=== PATIENT | male | born 1955 | race Caucasian/White ===

== ENCOUNTER → 2020-04-07 | Outpatient (CLI) | payer BC ==
--- NOTE | 2020-04-07 11:41 | CARD ---
MR#: [id number] Date of Study: 04/07/2020 Ordering Physician: GARRETT MO, Referring Physician: GARRETT MO, Tech: Debbie Mejia KELLY APPROVED REPORT EXAM: Two-dimensional and M-mode echocardiogram with Doppler and color Doppler. Other Information Quality : Good Rhythm : Bradycardia INDICATION Dyspnea RISK FACTORS Smoking 2D DIMENSIONS RVDd2.6 (2.9-3.5cm)Left Atrium(2D)2.9 (1.6-4.0cm) IVSd0.6 (0.7-1.1cm)Aortic Root(2D)3.0 (2.0-3.7cm) LVDd4.7 (3.9-5.9cm)LVOT Diameter2.0 (1.8-2.4cm) PWd0.7 (0.7-1.1cm)LVDs3.2 (2.5-4.0cm) FS (%) 32.6 %SV61.9 ml LVEF(%)60.0 (>50%) Aortic Valve AoV Peak Richard.128.7cm/sAoV VTI27.0cm AO Peak GR.6.6mmHgLVOT Peak Richard.126.3cm/s AO Mean GR.3mmHgAVA (VMAX)3.14cm2 KODI (VTI)3.10cm2 Mitral Valve MV E Qyckctim07.7cm/sMV DECEL IPYR696sm MV A Tilmtpqn34.9cm/sE/A Ratio1.2 Tricuspid Valve TR P. Fjxcgroi151yu/sRAP EZOCMOFR2noQq TR Peak Gr.27iaOlZTWA78vpLj Pulmonary Vein S1 Lqxuzcxp23.9cm/sD2 Hakficaq41.7cm/s LEFT VENTRICLE The left ventricle is normal size. There is normal left ventricular wall thickness. The left ventricu lar systolic function is normal and the ejection fraction is within normal range. The Ejection Fracti on is 55-60%. There is normal LV segmental wall motion. The left ventricular diastolic function and f illing is normal for age. RIGHT VENTRICLE The right ventricle is normal size. The right ventricular systolic function is normal. ATRIA The left atrium size is normal. The right atrium size is normal. The interatrial septum is intact wit h no evidence for an atrial septal defect or patent foramen ovale as noted on 2-D or Doppler imaging. AORTIC VALVE The aortic valve is calcified but opens well. Doppler and Color Flow revealed no significant aortic r egurgitation. There is no significant aortic valvular stenosis. MITRAL VALVE The mitral valve is calcified but opens well. There is no evidence of mitral valve prolapse. There is no mitral valve stenosis. Doppler and Color-flow revealed mild mitral regurgitation. TRICUSPID VALVE The tricuspid valve is normal in structure and function. Doppler and Color Flow revealed trace tricus pid regurgitation. The PA pressure was estimated at 32 mmHg. There is no tricuspid valve stenosis. PULMONIC VALVE The pulmonic valve is not well visualized. Doppler and Color Flow revealed no pulmonic valvular regur gitation. There is no pulmonic valvular stenosis. GREAT VESSELS The aortic root is normal in size. The ascending aorta is not well seen. The IVC is normal in size an d collapses >50% with inspiration. PERICARDIAL EFFUSION There is no evidence of significant pericardial effusion. Critical Notification Critical Value: No <Conclusion> The left ventricular systolic function is normal and the ejection fraction is within normal range. Th e Ejection Fraction is 55-60%. There is normal LV segmental wall motion. Signed by : Ricardo Ruiz, Electronically Approved : 04/07/2020 11:41:45
--- NOTE | 2020-04-07 17:33 | RAD ---
MR#: [id number] Date of Study: 04/07/2020 Ordering Physician: GARRETT MO, Referring Physician: ADRIANE JERRY Tech: RT Jeremias (R) (N) APPROVED REPORT Test Type: Exercise Stress Nurse/Tech: Piper Bearden R.N. Test Indications: chest pain Cardiac History: smoker Medications: see ehr Medical History: see ehr Resting ECG: SR with PACs Resting Heart Rate: 57 bpm Resting Blood Pressure: 140/74mmHg Pretest Chest Pain: No chest pain Nurse/Tech Notes lungs cta, heart rate irregular Consent: The procedure was explained to the patient in lay terms. Informed consent was witnessed. Moises eout was entered into [employer]. History and Stress Test performed by PASCUAL Monsalve, SERVANDO (R) (N) Stress Symptoms No chest pain or symptoms.Dyspnea POST EXERCISE Reason for Termination: Reached target heart rate Target HR: Yes Max HR: 133 bpm 85% of Maximum Predicted HR: 157 bpm Exercise duration: 7:25 min:sec, 3 Stage Exercise capacity: 10.0METs Max Blood Pressure: 182/62mmHg Blood Pressure response to exercise: Normal blood pressure response during stress. Chest Pain: No. Arrhythmia: Yes. PACS noted throughout ST Change: Yes. Non-specific st/t changes INTERPRETATION Stress EKG Conclusion: No evidence of stress induced EKG changes. Imaging Protocol IMAGE PROTOCOL: Rest Tc-99m/stress Tc-99m 1 day Rest: Stress: Viability: Radiopharm.Tc99m [id number] Sestamibi Dose10.1mCi 31mCi Duration 15min. 10min. Img Date 04/07/2020 04/07/2020 Inj-Img [id number]. 60min. Rest Admin Site:IV - Right AntecubitalAdministrator:RT Jeremias (R)(N) Stress Admin Site: IV - Right AntecubitalAdministrator: PASCUAL Monsalve, ARRT (R)(N) STRESS DATA End Diast. Vol.105.0mlAv. Heart Rate67.0bpm End Syst. Vol.35.0mlCO Index BSA0.0L/min Myocardial Hvxr089.0gEject. Eremxmjk75.0% Stress Rates Pk. Fill Rate2.82EDV/secLVtime Pk. Fill 211.66msec Pk. Empty Rate3.89ESV/secLVtime Pk. Hxntx577.16msec 1/3 Pk. Fill1.34EDV/sec Stress Scores Regional WT0.00Summed WT6.00 Regional WM0.00Summed WM5.00 LV Perfusion There is a moderate to large size basal to distal inferolateral fixed defect suggestive of prior infa rct without any active ischemia. Wall Motion Normal ejection fraction with severe inferior wall hypokinesis. LV Perf. Quant 17 Seg. SSS12.00 17 Seg. SRS7.00 17 Seg. SDS5.00 Stress Defect Extent (% LAD)0.00Rest Defect Extent (% LAD)0.00Rev. Defect Extent (% LAD)0.00 Stress Defect Extent (% LCX) 45.00Rest Defect Extent (% LCX)17.50Rev. Defect Extent (% LCX)21.30 Stress Defect Extent (% RCA)15.60Rest Defect Extent (% RCA)13.30Rev. Defect Extent (% RCA)0.00 Stress Defect Extent (% KIET)17.60Rest Defect Extent (% KIET)10.40Rev. Defect Extent (% KIET)5.00 Other Information Quality:Average Risk Assessment: Moderate Risk Conclusion 1. No evidence of stress-induced EKG changes 2. Moderate to large size fixed inferior wall defect 3. Normal ejection fraction with severe inferior wall hypokinesis 4. Moderate risk for future cardiovascular events. Signed by : Ricardo Ruiz, Electronically Approved : 04/07/2020 17:33:03
== END ==
LOC: NM 09:26
PROVIDERS: ATTEND Internal Medicine Cardiovascular Disease
DX: I08.0 Rheumatic disorders of both mitral and aortic valves (principal); Z87.891 Personal history of nicotine dependence
CPT/HCPCS: 78452; 93017; 93306; A9500

== ENCOUNTER → 2021-04-18 | Outpatient (CLI) | payer BC ==
--- NOTE | 2021-04-18 16:41 | KCIC ---
EXAM: CT CHEST WITHOUT DOPBAFNP-FOQ-RHKY LUNG SCREENING HISTORY: Smoking history, 40 pack years. Quit 1 year ago. COMPARISON: None TECHNIQUE: Helical CT of the chest performed without contrast according to low-dose lung screening p rotocol. Coronal and sagittal reformats were obtained. One or more of the following individualized dose reduction techniques were utilized for this examinat ion: 1. Automated exposure control 2. Adjustment of the mA and/or kV according to patient size 3. Use of iterative reconstruction technique. FINDINGS: LUNGS: 5 mm triangular noncalcified perifissural nodule in the right lower lobe abutting the major fi ssure (image 176). 2 mm noncalcified subpleural nodule in the right lower lobe (image 242). No suspic ious nodules. There is mild airway wall thickening. No pleural effusion. OTHER: Heart is normal in size. There are coronary artery calcifications. Thoracic aorta is normal in caliber. No thoracic lymphadenopathy. There is a small hiatal hernia. Upper abdomen is unremarkable. There is degenerative disc disease at T12-L1 with mild kyphosis. IMPRESSION: 1. There are 2 noncalcified nodules in the right lower lobe, the largest a perifissural nodule measu ring 5 mm. No suspicious nodules. Lung RADS: 2-benign appearance or behavior. Recommend continued ami ual screening with low-dose lung CT in 12 months. 2. Coronary artery calcifications. 3. Small hiatal hernia. Electronically signed by: Carine Rivera MD (04/18/2021 4:38 PM) [id number]
== END ==
LOC: KCIC CT 13:49
PROVIDERS: ATTEND Family Medicine
DX: Z12.2 Encounter for screening for malignant neoplasm of respiratory organs (principal); R91.8 Other nonspecific abnormal finding of lung field; I25.10 Atherosclerotic heart disease of native coronary artery without angina pectoris; K44.9 Diaphragmatic hernia without obstruction or gangrene; M51.35 Other intervertebral disc degeneration, thoracolumbar region; M40.205 Unspecified kyphosis, thoracolumbar region; Z72.0 Tobacco use
CPT/HCPCS: 71271

== ENCOUNTER → 2021-05-26 | Outpatient (CLI) | payer BC ==
[2021-05-26] MEDS: GADOTERATE 5 MMOL/10ML VIAL. INT ART ONE (14:57)
[2021-05-26] MEDS: LIDOCAINE 1% Multi-Dose 20 ML VIAL. ID ONE (14:57)
[2021-05-26] MEDS: IOHEXOL 300 MG/ML 50 ML VIAL. INT ART ONE (14:57)
[2021-05-26] MEDS: BUPIVACAINE MPF 0.5% 10 ML VIAL. INT ART ONE (14:58)
--- NOTE | 2021-05-26 15:28 | KCIC ---
DG ARTHROGRAM SHOULDER RIGHT History: Reason: SLAP TEAR OF RT SHOULDER, CERVICAL NEURITIS, RT SHOULDER PAIN / Spl. Instructions: 5 mL Omni 300,5mL Bupivicaine,10mL saline,0.2mL Clariscan,37 sec fl,1image / History: PROCEDURE: The risks, alternatives, benefits of the procedure discussed with the patient. Written informed cons ent is obtained. A timeout is performed. Skin site was chosen under fluoroscopy. This area is prepped and draped in normal sterile fashion. 1% Lidocaine is used for superficial and deep local anesthesia. Using intermittent fluoroscopy, a 22 -gauge spinal needle is advanced into the joint space. Then a dilute gadolinium solution is instilled , total volume approximately 11 mL. The needle was removed. Hemostasis is achieved. The patient to lerated the procedure well. There is no immediate complication. Patient was transferred to MRI. Fluoroscopy time 37 seconds Fluoroscopic images: 1. IMPRESSION: 1. Fluoroscopically guided right shoulder arthrogram prior to MRI. Electronically signed by: Obdulio Alvarez DO (05/26/2021 3:26 PM) [id number]
--- NOTE | 2021-05-26 15:32 | KCIC ---
Examination: MR arthrogram right shoulder HISTORY: History of SLAP tear right shoulder, right shoulder pain COMPARISON: None TECHNIQUE: Multiplanar, multisequence MR imaging of the right shoulder performed after arthrogram inj ection Findings: The long head of the biceps tendon within the bicipital groove. The attachment of the long head the b iceps tendon to the superior labral anchor grossly appears intact. The attachment of the subscapulari s tendon grossly appears intact. There is full-thickness tear of the supraspinatus tendon measuring 1.9 cm in transverse dimension and 2.1 cm AP dimension with extension of contrast from the shoulder joint into the subacromial subdelto id bursa. The attachment of the infraspinatus tendon grossly appears intact. Moderate increased T2 si gnal identified in the subscapularis, supraspinatus, infraspinatus tendon likely tendinosis. The musc le bulk grossly appears unremarkable. The acromion is type II. Fat is identified in the rotator interval. The visualized labrum grossly appears unremarkable. Small subchondral cystic changes identified in th e posterior lateral humerus head. Moderate degenerative changes glenohumeral joint, acromioclavicular joint IMPRESSION: 1. Full-thickness tear of the supraspinatus tendon measuring 1.9 cm in transverse dimension and 2.1 cm AP dimension with extension of contrast from the shoulder joint into the subacromial subdeltoid bu rsa. 2. Moderate tendinosis of the rotator cuff. 3. Moderate degenerative changes glenohumeral joint, acromioclavicular joint. Electronically signed by: Kostas Moran MD (05/26/2021 3:29 PM) [id number]
--- NOTE | 2021-05-27 09:54 | KCIC ---
MR CERVICAL SPINE WO History:Reason: CERVICAL NEURITIS, RT SHOULDER PAIN / Spl. 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 / History: Neck pain and very LROM, chronic. Technique: Multiplanar, multi sequential noncontrast MR imaging was performed of the cervical spine. Comparison: None Findings: Straightening of the cervical spine. Mild retrolisthesis C5 on C6 and C6 on C7. Slight grade 1 abigail listhesis C7 on T1 and T1 on T2. Normal vertebral body height. No acute fracture. Multilevel degenera tive endplate edema most prominent C5-C6 and C6-C7. Decreased flow void of the right vertebral artery. No pathologic signal abnormality within the cervical spinal cord. C2-C3: Minimal disc bulge. No canal narrowing. Uncovertebral and facet arthropathy. Moderate right n euroforaminal narrowing. C3-C4: Posterior disc osteophyte complex. Moderate canal narrowing. Cord flattening. Uncovertebral a nd facet arthropathy. Severe bilateral neuroforaminal narrowing. C4-C5: Posterior disc osteophyte complex. Minimal canal narrowing. Uncovertebral and facet arthropat hy. Severe right and moderate left neuroforaminal narrowing. C5-C6: Posterior disc osteophyte complex. Mild canal narrowing. Minimal cord flattening. Uncovertebr al and facet arthropathy. Severe bilateral neuroforaminal narrowing. C6-C7: Posterior disc osteophyte complex. Mild canal narrowing. Cord flattening. Uncovertebral and facet arthropathy. Severe bilateral neuroforaminal narrowing. C7-T1: No canal narrowing. Facet arthropathy. Mild right neuroforaminal narrowing. Impression: 1. Moderate multilevel cervical spondylosis most prominent C3-C4. 2. C3-C4 moderate canal narrowing with cord flattening. 3. Multilevel severe neuroforaminal narrowing. 4. Degenerative endplate edema most prominent C4-C5 and C5-C6. 5. Decreased flow void within the right vertebral artery, may relate to small caliber, stenosis or o cclusion. MR or CT angiogram can further assess as clinically warranted. Comparison with prior imagin g studies would be of benefit. Electronically signed by: Obdulio Alvarez DO (05/27/2021 9:51 AM) [id number]
== END | disposition home or self-care (01) ==
LOC: KCIC 13:20
PROVIDERS: ATTEND Physician Assistant
DX: S43.431A Superior glenoid labrum lesion of right shoulder, initial encounter (principal); M19.011 Primary osteoarthritis, right shoulder; M25.511 Pain in right shoulder; M54.12 Radiculopathy, cervical region; M47.812 Spondylosis without myelopathy or radiculopathy, cervical region; M48.02 Spinal stenosis, cervical region; Z88.5 Allergy status to narcotic agent; Z79.899 Other long term (current) drug therapy; Z98.890 Other specified postprocedural states; X58.XXXA Exposure to other specified factors, initial encounter; Y93.89 Activity, other specified; Y92.89 Other specified places as the place of occurrence of the external cause; Y99.8 Other external cause status
CPT/HCPCS: 23350; 72141; 73222; 77002; A9575; J3490; Q9967

== ENCOUNTER → 2021-08-05 | Outpatient (CLI) | payer BC ==
[~2021-08-05] MED LIST: ATOR20TA58 PO; OMEP-203 PO; OXYC1TAB15 PO; PEROXITINE PO
== END ==
LOC: LAB 13:54
PROVIDERS: ATTEND Orthopaedic Surgery Sports Medicine
DX: Z01.812 Encounter for preprocedural laboratory examination (principal); Z20.822 Contact with and (suspected) exposure to COVID-19
CPT/HCPCS: U0003

== ENCOUNTER 2021-08-09 05:51 | Day surgery (SDC) | payer BC ==
[~2021-08-09] VITALS: Ht 168.9 cm; Wt 65.0 kg
[2021-08-09] MEDS ORDERED: fentaNYL PF VIAL 100 MCG/2 ML VIAL IVP PRN ×2 (06:00)
[2021-08-09] MEDS ORDERED: PROCHLORPERAZINE 10 MG/2 ML VIAL. IVP PRN (06:00)
[2021-08-09] MEDS ORDERED: HYDROmorphone 2 MG/ML INJ. IVP PRN (06:00)
[2021-08-09] MEDS ORDERED: MORPHINE SULFATE 2 MG/ML INJ. IVP PRN (06:00)
[2021-08-09] MEDS ORDERED: IV RINGERS,LACTATED 1000ML 1,000 ML IV SCH (06:00)
[2021-08-09] MEDS ORDERED: PEROXITINE PO (06:18)
[2021-08-09] MEDS ORDERED: OMEP-203 PO (06:18)
[2021-08-09] MEDS ORDERED: ATOR20TA58 PO (06:18)
[2021-08-09 06:21] VITALS: BP 145/67
[2021-08-09] MEDS ORDERED: PROPOFOL 10 MG/ML (20ML) VIAL. IV ONE ×3 (06:29→09:41)
[2021-08-09] MEDS ORDERED: LIDOCAINE 2% PF 5 ML VIAL. ONE ×3 (06:29→08:34)
[2021-08-09] MEDS ORDERED: DEXAMETHASONE SOD PHOS 4 MG/ML VIAL ONE ×3 (06:30→08:34)
[2021-08-09] MEDS ORDERED: ONDANSETRON PF 4 MG/2 ML VIAL. ONE ×2 (06:30→08:34)
[2021-08-09] MEDS ORDERED: ROCURONIUM 50 MG/5 ML VIAL. ONE (06:30)
[2021-08-09] MEDS ORDERED: SUCCINYLCHOLINE 200 MG/10 ML VIAL. ONE (06:59)
[2021-08-09] MEDS ORDERED: PHENYLEPHRINE 10 MG/ML VIAL. ONE (07:05)
[2021-08-09] MEDS ORDERED: BUPIVACAINE MPF 0.5% 30 ML VIAL. ONE (07:39)
[2021-08-09] MEDS ORDERED: EPINEPHrine 1 MG/ML VIAL ONE (07:39)
[2021-08-09] MEDS ORDERED: fentaNYL PF VIAL 100 MCG/2 ML VIAL ONE ×2 (08:15→09:44)
[2021-08-09] MEDS ORDERED: MIDAZOLAM HCL/PF 2 MG/2 ML VIAL. ONE (08:15)
[2021-08-09] MEDS ORDERED: IPRATRPIUM/ALBUTEROL 0.5/2.5MG 3 ML NEBU. NEB ONE (08:15)
[2021-08-09] MEDS ORDERED: EPINEPHrine VIAL 30 MG/30 ML VIAL ONE (08:29)
[2021-08-09] MEDS ORDERED: SEVOFLURANE > 120 MINUTES. IH ONE (08:34)
[2021-08-09] MEDS ORDERED: OXYC1TAB15 PO (08:54)
--- NOTE | 2021-08-09 08:55 | DISCH ---
DISCHARGE INSTRUCTIONS Condition on Discharge Condition on Discharge: Stable Activity After Discharge Activity Instructions for Disc: Other ROM activity Other activity instructions: arm to remain in sling Bathing Instructions: Shower-keep dressing dry Weight Bearing Status after Di: Non weight bearing Diet after Discharge Diet after Discharge: Regular Wound Incision Care Wound/Incision Care: Ice to area for comfort, Keep wound/cast CDI, Change dressing Other wound/incision instructi: change dressing in [address] after DC Call your doctor for: Concerns you may have Follow-Up Follow up with: Александр in 2 wks MARTINEZ EVERETT II, MD Aug 09, 2021 08:55
--- NOTE | 2021-08-09 08:57 | PDOC4 ---
Operative Note Operative Note Date of procedure: 08/09/21 Surgeon: Bjorn Everett [employer] Commanding Officer: Etienne Moreno, certified ethical hacker Preoperative diagnosis: Right shoulder rotator cuff tear Postoperative diagnosis: Same Procedure performed: Arthroscopic right shoulder rotator cuff repair, massive tear Anesthesia: Gen. plus regional nerve block Findings: #1 Large tear involving supraspinatus and infraspinatus, remainder rotator cuff intact 2. Glenohumeral cartilage unremarkable 3. No loose bodies 4. Labrum intact circumferentially 5. Longitudinal split in biceps tendon Blood loss: 10mL Components inserted: [employer] Helacoil anchor times 3, footprint for lateral row fixation Reason for procedure: Patient is a very pleasant gentleman who has had developed chronic shoulder pain, and despite conservative therapies, his symptoms were progressive. Clinical and radiographic examination were consistent with the above preoperative diagnosis and we had a discussion of the risks, benefits, alternatives and he wished to proceed with surgery. Description of procedure: Patient was greeted in the preoperative holding area where the correct extremity was verified and marked. They were taken to the preoperative holding area where the anesthesiology team placed a regional nerve block. The patient was then taken back to the operative suite and antibiotics were started as they were brought back. Once in the operative room, the patient was transferred gently supine to the operating room table after successful induction of a general anesthetic. After this, he was sat up in a beachchair position maintaining his C-spine in neutral position, large pad under his legs, he was secured to the bed. We then prepped and draped his right upper extremity and shoulder girdle in our usual sterile fashion, we conducted our standard preoperative timeout. I palpated and marked surface anatomy for my planned portal sites. I then used a spinal needle to localize a posterior superior por jerardo and incised skin in accordance with this. After this, I introduced the blunt arthroscopic trocar into the glenohumeral joint followed by the camera. I used a spinal needle to localize an anterosuperior portal and incised skin in accordance with this. I then introduced my arthroscopic probe and conducted my diagnostic arthroscopy with the above-noted findings. After this, I repositioned the camera into the subacromial space and performed a bursectomy with combination of shaver and electrocautery device, after establishing a lateral portal under spinal needle localization. I then identified the rotator cuff tear and I debrided the pathologic tendon and prepared my footprint. I then created accessory anterolateral and posterolateral portals for suture management. I then placed my helacoil anchor and shuttled limbs through in a simple configuration. I tied these down with arthroscopic knot-tying techniques. I took one limb from the middle for knots I had tied, the remainder of the suture limbs were cut, and incorporated this into my lateral row repair. The tear was stable to probing and to gentle rotation of the arm. I then removed all loose bony debris and the excess arthroscopic fluid. I took my final pictures prior to this. After this, all the excess fluid and instrumentation was removed. The portals were closed with simple interrupted 3-0 nylon. Sterile dressing was applied followed by an abduction pillow sling. Patient tolerated surgery well. No complications. At the conclusion, he was laid supine and transferred gently supine to the recovery room cart and taken to the PACU in a stable and extubated condition. Postoperative plan is discharge him home, nonweightbearing for 6 weeks. Well get him started on physical therapy. He will follow up with me in 2 weeks, sooner should a problem arise. BJORN EVERETT II, MD Aug 09, 2021 08:57
[2021-08-09] MEDS ORDERED: GLYCOPYRROLATE 1 MG/5 ML VIAL. ONE (09:36)
[2021-08-09] MEDS ORDERED: ESMOLOL 100 MG/10 ML VIAL. IVP ONE (09:42)
[2021-08-09 11:20] VITALS: BP 117/84
== END 2021-08-09 12:08 | disposition home or self-care (01) ==
LOC: SURG 05:51
PROVIDERS: ATTEND Orthopaedic Surgery Sports Medicine
DX: M75.101 Unspecified rotator cuff tear or rupture of right shoulder, not specified as traumatic (principal); I25.10 Atherosclerotic heart disease of native coronary artery without angina pectoris; E78.00 Pure hypercholesterolemia, unspecified; J43.9 Emphysema, unspecified; K21.9 Gastro-esophageal reflux disease without esophagitis; M19.90 Unspecified osteoarthritis, unspecified site; F41.9 Anxiety disorder, unspecified; E11.9 Type 2 diabetes mellitus without complications; Z79.82 Long term (current) use of aspirin; Z79.84 Long term (current) use of oral hypoglycemic drugs; Z79.899 Other long term (current) drug therapy; Z98.890 Other specified postprocedural states
CPT/HCPCS: 29827; 36415; 64415; 82306; 94640; A4355; A4565; A4928; A4930; A6253; C1713; J0171; J0330; J0690; J1100; J2250; J2370; J2405; J2704; J3010; J3490; A4452